=== PATIENT | female | born 1990 | race Caucasian/White ===

== ENCOUNTER 2019-06-10 02:57 | Emergency (ER) | payer BC ==
[~2019-06-10] VITALS: Ht 157.5 cm; Wt 57.2 kg
[2019-06-10 03:00] VITALS: BP 130/88
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
[2019-06-10 04:58] VITALS: BP 124/82
--- NOTE | 2019-06-10 04:59 | NUR ---
ER Nurse Note: Pt asleep, no signs of distress, RA. No signs of n/v. All safety measures met; will continue to monitor.
[2019-06-10 05:55] VITALS: BP 122/78
--- NOTE | 2019-06-10 05:55 | NUR ---
ED Nurse Note: Pt cleared by health care Provider for discharge. DC instructions was given and explained to pt and verbalized understanding of teachings. Instructed pt to follow up with a primary care physican within one week. All medical deviecs such as ID band and IV removed; site clean and bandgaged. Pt is AAO x4, ambulatory and left with all personal belongings.
== END 2019-06-10 05:55 | disposition home or self-care (01) ==
LOC: EDBD 02:57 → EMR 03:26
DX: F10.920 Alcohol use, unspecified with intoxication, uncomplicated (principal)
CPT/HCPCS: 99283